=== PATIENT | male | born 1985 | race Caucasian/White ===

== ENCOUNTER 2021-01-28 18:02 | Emergency (ER) | payer MEDICAID, OTHER ==
[~2021-01-28] VITALS: Ht 167.6 cm; Wt 63.5 kg
[~2021-01-28 18:02] MED LIST: TRAM50TA2
--- NOTE | 2021-01-28 18:21 | NUR ---
CC OF MULTIPLE COMPLAINTS, VOMITING SINCE THIS AM, UNABLE TO KEEP ANYTHING DOWN AND DIARRHEA. DENIES BLACK OR BLOODY STOOLS. PT ALSO STATES HE HAS BEEN IN AND OUT OF HOSPITALS LATELY DUE TO HAVING SWOLLEN, RED HANDS. 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 PT DENYING EATING ANY BAD FOOD LATELY. MOTHER AT BEDSIDE.
--- NOTE | 2021-01-28 18:47 | NUR ---
PT REFUSING TO CHANGE INTO GOWN.
[2021-01-28] MEDS ORDERED: SODIUM CHLORIDE 0.9% 1,000ML IVBOLUS ONE (19:00)
[2021-01-28] MEDS ORDERED: SODIUM CHLORIDE FLUSH 10ML SYR IVF ONE (19:00)
[2021-01-28] MEDS ORDERED: ONDANSETRON 2MG/ML, 2ML IVPush ONE (19:00)
[2021-01-28] MEDS ORDERED: SODIUM CHLORIDE 0.9% 1,000 ML IV ONE (19:00)
[2021-01-28] MEDS ORDERED: ONDANSETRON 2MG/ML, 2ML ONE (19:08)
[2021-01-28 19:16] LABS: BASOPHILS % (AUTO) 0 % (0-1); EOSINOPHILS % (AUTO) 1 % (1-7); LYMPHOCYTES % (AUTO) 6 % (22-44); MEAN CORPUSCULAR HEMOGLOBIN 31.6 pg (27.5-34.5); MEAN CORPUSCULAR HGB CONC 33.2 g/dL (33.2-36.2); MEAN PLATELET VOLUME 8.5 fL (7.4-10.4); MONOCYTES % (AUTO) 7 % (2-9); NEUTROPHILS % (AUTO) 85 % (42-75); PLATELET COUNT 310 x10^3/uL (130-400); RED BLOOD COUNT 4.97 x10^6/uL (4.38-5.82); RED CELL DISTRIBUTION WIDTH 13.5 % (9.4-14.8)
[2021-01-28 19:19] LABS: ALANINE AMINOTRANSFERASE 89 U/L (12-78); ALBUMIN 3.7 g/dL (3.4-5.0); ANION GAP 6 mmol/L (5-15); CALCIUM 8.4 mg/dL (8.5-10.1); CHLORIDE 105 mmol/L (98-107); CREATININE 0.85 mg/dL (0.7-1.3)
[2021-01-28 19:22] LABS: ALKALINE PHOSPHATASE 81 U/L (45-117); BILIRUBIN,TOTAL 0.4 mg/dL (0.2-1.0)
--- NOTE | 2021-01-28 19:52 | NUR ---
PT STATES HE FEELS LESS NAUSEOUS THEN BEFORE, REQUESTING TO GO OUTSIDE AND SMOKE CIGERETTTE.
[2021-01-28 20:16] LABS: MD SCAN
--- NOTE | 2021-01-28 20:30 | NUR ---
PTS MOTHER UPSET IN HALLWAY, WANTING TO LEAVE STATING "HE'S HUNGRY, WE WOULD LIKE TO GO". EDUCATED ABOUT PROVIDER SPEAKING WITH PT ABOUT LABS AND FOLLOW UP CARE. PTS MOTHER UPSET AND WALKED ANGRILY BACK INTO ROOM.
[2021-01-28 21:07] VITALS: BP 116/74
== END 2021-01-28 21:42 | disposition home or self-care (01) ==
LOC: ED 21:10
DX: K52.9 Noninfective gastroenteritis and colitis, unspecified (principal); R11.2 Nausea with vomiting, unspecified; R94.31 Abnormal electrocardiogram [ECG] [EKG]; M79.89 Other specified soft tissue disorders; F17.210 Nicotine dependence, cigarettes, uncomplicated
CPT/HCPCS: 36415; 80053; 83690; 85025; 93005; 96361; 96374; 99284; J2405; J7030